=== PATIENT | female | born 1990 | race Caucasian/White ===

== ENCOUNTER 2021-04-10 04:58 | Inpatient (IN) | payer OTHER, SELFPAY ==
[2021-04-10] VITALS (97 sets, daily range): BP systolic 94–142; BP diastolic 40–92; PULSE 68–151; RESP 16; TEMP 36.6–36.9; O2SAT 98–100; BMI 31.1
--- NOTE | 2021-04-10 04:58 | LDADM ---
This patient, Sandrita Castellanos, was admitted to Labor/Delivery/Recovery 108 on 04/10/21 at 04:58. Plans for labor, pain management and were discussed with patient. Patient/family oriented to hospital policies and general routines including ID bracelet, bed and alarms, visiting hours, pain management, procedures, bathroom and other care routines, personal items, smoking policy, room service/diet and guest tray routines, infant security routines, and visiting hours. Patient/Family are encouraged to report perceived risks to care and to ask questions if they do not understand what they are told or what they should do. See OBIX for further documentation.
[2021-04-10 05:28] LABS: Basophils Absolute Auto 0.1 K/mm3 (0.0-0.1); Basophils Percent Auto 0.6 % (0.2-1.2); Eosinophils Absolute Auto 0.2 K/mm3 (0-0.3); Eosinophils Percent Auto 2.5 % (0-4.4); Hematocrit 32.7 % (37.0-47.0); Hemoglobin 11.1 g/dL (12.0-15.0); Immature Granulocyte Absolute 0.04 K/mm3 (0.00-0.031); Immature Granulocyte Percent A 0.4 % (0-0.5); Lymphocytes Percent Auto 15.6 % (18.3-44.2); Mean Corpuscular HGB Conc 33.9 g/dl (32-36); Mean Corpuscular Hemoglobin 31.3 pg (26-34); Mean Corpuscular Volume 92.1 fl (80-100); Mean Platelet Volume 10.6 fl (7.4-10.4); Monocytes Absolute Auto 0.6 K/mm3 (0.1-0.6); Monocytes Percent Auto 5.7 % (2.6-8.5); Neutrophils Absolute Auto 7.2 K/mm3 (1.3-6.7); Neutrophils Percent Auto 75.2 % (45.5-73.1); Platelet Count Result 189 k/mm3 (150-375); Red Blood Count 3.55 M/mm3 (4.2-5.4); Red Cell Distribution Width 13.2 % (11.5-14.5); White Blood Count 9.6 K/mm3 (4.5-10.0)
[2021-04-10] MEDS: OXYTOCIN 30 UNITS/NS 500 ML 30 UNITS/500 ML BAG IV CONT (05:32)
[2021-04-10] MEDS: LACTATED RINGERS 1,000 ML 125 ML IV CONT ×2 (05:32→11:06)
--- NOTE | 2021-04-10 07:15 | PM.IMHP ---
H&P: HPI History of Present Illness Date/Time: 04/10/21 07:15 31-year-old 2 para 1 with unknown last menstrual period, EDC of 04/16/2021 confirmed by 9 week ultrasound presents at 3917 weeks gestation for induction of labor. She negative for group B strep in her has been uncomplicated. Her cervix is favorable Chief Complaint: induction of labor at term Review of Systems Review of Systems: All systems reviewed & are unremarkable except as noted in HPI and below PMFSH Family History Family History Father Lung cancer Grandparent Diabetes mellitus Social History Social History Smoking status: Never smoker Alcohol intake: current Substance use: never Spiritual care concerns: No Meds Home Medications and Allergies Home Medications Medication Instructions Recorded Confirmed Type prenat.vits,leatha,eix-smgi-tntca 1 tablet PO DAILY 03/16/21 03/16/21 History [ #2] Allergies Allergy/AdvReac Type Severity Reaction Status Date / Time No Known Allergies Allergy Verified 03/16/21 12:35 Vital Signs Vital Signs - 24 hr 04/10/21 05:27 04/10/21 06:29 04/10/21 06:45 Pulse Rate 93 90 84 Blood Pressure 123/67 120/67 109/73 04/10/21 07:00 Pulse Rate 78 Blood Pressure 108/68 Exam Const: General: no acute distress Eyes: General: appearance normal, both eyes and all related structures Neck: Neck: supple and no JVD Thyroid: thyroid normal Resp: Effort & Inspection: normal respiratory effort Auscultation: clear to auscultation bilaterally Cardio: Rate: regular rate Rhythm: regular rhythm GI: Inspection: non-distended GI Palp: Yes Soft to palpation, No Tenderness to palpation present (GI) and No Guarding due to palpation present (GI) Auscultation: normal bowel sounds : External Female Exam: normal external appearance Speculum Exam - Vagina: normal appearance of the vagina Speculum Exam - Cervix: Cervical os closed ( cervix 3/60/1. AROM clear. FHTs reassuring) Skin: General skin exam: no rashes or lesions noted Extrem: General: normal to inspection and no edema Psych: Mental Status: mental status grossly normal Affect: normal affect H&P: Results Labs Labs: Short CBC 04/10/21 Range/Units 05:20 WBC 9.6 (4.5-10.0) K/mm3 Hgb 11.1 L (12.0-15.0) g/dL Hct 32.7 L (37.0-47.0) % Plt Count 189 (150-375) k/mm3 Assessment and Plan Additional Plan impression: Term with favorable cervix Plan: Medical induction of labor. Spontaneous vaginal delivery expected. She has an epidural candidate
[2021-04-10 09:47] LABS: Rapid Plasma Reagin Non-Reactive (NonReactive)
--- NOTE | 2021-04-10 10:58 | WPDANESEPP ---
Anes - Eval Pre Procedure Procedure: labor epidural Date/Time: 04/10/21 10:58 Preop Diagnosis: labor pain Pre Op Diagnosis: IOL Patient Data Age: 31 Gender: F Height: 1.7 m Weight: 90 kg Last Vital Signs Temp 36.6 C 04/10/21 08:00 Pulse 68 04/10/21 10:45 BP 124/71 04/10/21 10:45 Allergies Allergy/AdvReac Type Severity Reaction Status Date / Time No Known Allergies Allergy Verified 03/16/21 12:35 Home Medications Medication Instructions Recorded Confirmed Type prenat.vits,leatha,ovz-ssbn-vtgla 1 tablet PO DAILY 03/16/21 03/16/21 History [ #2] Laboratory Tests 04/10/21 04/10/21 04/10/21 05:20 05:20 05:20 WBC 9.6 K/mm3 K/mm3 (4.5-10.0) RBC 3.55 M/mm3 L M/mm3 (4.2-5.4) Hgb 11.1 g/dL L g/dL (12.0-15.0) Hct 32.7 % L % (37.0-47.0) MCV 92.1 fl fl (80-100) MCH 31.3 pg pg (26-34) MCHC 33.9 g/dl g/dl (32-36) RDW 13.2 % % (11.5-14.5) Plt Count 189 k/mm3 k/mm3 (150-375) MPV 10.6 fl H fl (7.4-10.4) Immature Gran % (Auto) 0.4 % % (0-0.5) Neut % (Auto) 75.2 % H % (45.5-73.1) Lymph % (Auto) 15.6 % L % (18.3-44.2) [place] % (Auto) 5.7 % % (2.6-8.5) Eos % (Auto) 2.5 % % (0-4.4) Baso % (Auto) 0.6 % % (0.2-1.2) Lymph # (Auto) 1.50 K/mm3 K/mm3 (0.9-3.2) [place] # (Auto) 0.6 K/mm3 K/mm3 (0.1-0.6) Eos # (Auto) 0.2 K/mm3 K/mm3 (0-0.3) Baso # (Auto) 0.1 K/mm3 K/mm3 (0.0-0.1) Abs Immat Gran (auto) 0.04 K/mm3 H K/mm3 (0.00-0.031) Absolute Neuts (auto) 7.2 K/mm3 H K/mm3 (1.3-6.7) Absolute Nucleated RBC 0.0 K/mm3 K/mm3 (0.0-0.012) Nucleated RBC % 0.0 % % (0.0-0.2) RPR Non-reactive (NonReactive) Blood Type B Positive Antibody Screen Negative Patient hx anesthesia problems: none Family hx anesthesia problems: none PMFSH Family History Family History Father Lung cancer Grandparent Diabetes mellitus Social History Social History Smoking status: Never smoker Alcohol intake: current Substance use: never Spiritual care concerns: No Exam Day of Procedure 04/10/21 10:58
--- NOTE | 2021-04-10 11:39 | PM.OBPNLAB ---
Pain Control Date/time seen: 04/10/21 11:39 Pain control: tolerating well and epidural Pelvic Exam Dilation (cm): 5 station: -1 Amniotic membrane status: Ruptured Contractions Monitor mode: None Contraction pattern: Regular
--- NOTE | 2021-04-10 15:38 | PM.OBPRVD ---
OB - Delivery Note Procedure Delivery date: 04/10/21 Intrapartal events: None Induction method: AROM Delivery augmentation: pitocin Delivery monitor: external FHT Route of delivery: Episiotomy description: None Laceration Description: None Specimen: No Quantitative Blood Loss (ml): 58 Anesthesia type: Epidural Disposition: floor Baby Date of : 04/10/21 Time of : 15:31 Weeks of gestation at delivery: 39 presentation: vertex position: Left Occiput Posterior Placenta delivery description: Spontaneous cord vessel description: 3 Vessels score one minute: 9 score five minutes: 9
[2021-04-10] MEDS: OXYTOCIN 30 UNITS/NS 500 ML 30 UNITS/500 ML BAG 125 UNITS IV CONT (15:43)
--- NOTE | 2021-04-10 18:32 | PC.NURSE ---
Patient transferred to post room #290 via wheelchair. Support person, Arnulfo, present. Oriented to unit, room, information board, rooming in, admission packet and security measures. Patient verbalizes understanding.
[2021-04-10] MEDS: DOCUSATE SODIUM 100 MG CAPSULE PO (19:17)
[2021-04-10] MEDS: IBUPROFEN 600 MG TABLET PO (19:18)
[2021-04-10] MEDS: LANOLIN (LANSINOH) 7.5 GM CREAM 1 APPLIC TOPICAL (19:19)
[2021-04-11 00:35] VITALS: BP 105/66; PULSE 72; RESP 16; TEMP 36.4; O2SAT 99
[2021-04-11] MEDS: IBUPROFEN 600 MG TABLET PO ×3 (01:15→15:26)
[2021-04-11] MEDS: ACETAMINOPHEN 325 MG TABLET 650 MG PO ×3 (04:05→19:05)
[2021-04-11 04:15] VITALS: BP 102/61; PULSE 86; RESP 16; TEMP 36.7; O2SAT 100
[2021-04-11 04:44] LABS: Hematocrit 34.2 % (37.0-47.0); Hemoglobin 11.2 g/dL (12.0-15.0)
--- NOTE | 2021-04-11 07:37 | PM.DS ---
DS: Admitting Diagnosis Discharge Date 04/11/21 Admitting Diagnosis term iup DS: Summary Hospital Course Hospital Course: Patient was admitted for induction of labor at term. She underwent spontaneous vaginal delivery which was unremarkable with epidural anesthesia. Her course for 24hours was unremarkable. She remained afebrile. She was up, ambulating, breast-feeding, and generally without complaints Time Spent with Patient Time attestation: Total time spent providing and/or coordinating discharge services: Exam Const: General: no acute distress Eyes: General: appearance normal, both eyes and all related structures Neck: Neck: supple and no JVD Thyroid: thyroid normal Resp: Effort & Inspection: normal respiratory effort Auscultation: clear to auscultation bilaterally Cardio: Rate: regular rate Rhythm: regular rhythm GI: Inspection: non-distended GI Palp: Yes Soft to palpation, No Tenderness to palpation present (GI) and No Guarding due to palpation present (GI) Auscultation: normal bowel sounds : General: Yes bladder normal to palpation External Female Exam: normal external appearance Speculum Exam - Vagina: normal vaginal discharge and No vaginal bleeding Speculum Exam - Cervix: nontender Bimanual exam- vagina & uterus: bladder normal to palpation and No Cervical tenderness present OB/external & speculum: No vaginal bleeding Skin: General skin exam: no rashes or lesions noted Extrem: General: normal to inspection and no edema Psych: Mental Status: mental status grossly normal Affect: normal affect DS: Data Data Completed and Pending Labs on day of discharge: Labs from last 24 hours 04/11/21 04/10/21 04:26 05:20 Hgb 11.2 L Hct 34.2 L RPR Non-reactive Discharge Plan Discharge Attending physician on discharge: Shai Barron Discharging Clinician: Shai Barron Patient Disposition: Home, Self-Care Activity: may shower, no straining and pelvic rest Diet: heart healthy Wound Care Instructions: follow printed instructions Patient Instructions: Antibiotic Form Stand Alone Forms: General Discharge Information Follow-up/Referrals: Shai Barron MD [Physician] - Discharge Medications: Continued #2 Tablet 1 tablet PO DAILY RF: 0 Date of admission: 04/10/21 04:58 Primary Care Provider: Negrito Spann Admitting Provider: Shai Barron Attending physician on admission: Shai Barron Condition: Stable
[2021-04-11] MEDS: DOCUSATE SODIUM 100 MG CAPSULE PO ×2 (08:49→15:25)
[2021-04-11] MEDS: MULTIVIT/MIN/PREN/FOL AC/IRON TABLET 1 TAB PO (08:49)
--- NOTE | 2021-04-11 08:55 | WPDANLDPN2 ---
Anes-Prog Note L&D Date/Time: 04/11/21 08:55 Comfortable throughout: labor and delivery Neuraxial method: epidural Epidural/Spinal procedure site: clean & non-tender Neuro status: Neuro function grossly intact. Cardiovascular status: normal Respiratory status: normal Airway patency: baseline Mental status: baseline Post-Op hydration status: normal Vital Signs: Last Vital Signs Temp 98.1 F 04/11/21 04:15 Pulse 86 04/11/21 04:15 Resp 16 04/11/21 04:15 BP 102/61 04/11/21 04:15 Pulse Ox 100 04/11/21 04:15 Pain score (VAS): 0 Post-procedural complaints: none Patient feedback: Patient satisfied with anesthetic care.
[2021-04-11 09:17] VITALS: BP 104/60; PULSE 76; RESP 18; TEMP 36.6; O2SAT 99
--- NOTE | 2021-04-11 10:00 | PC.NURSE ---
Mother verbalizes she is able to independently latch with appropriate positioning/alignment. She denies any nipple discomfort, is feeding as required and waking to feed if needed. Requested mother to call out for RN/LC assistance if she is unable to latch for feeding or she has discomfort with nursing. Instructed feeding should be initiated three hours from start of last feeding or if feeding cues are noted before. Mother voiced understanding of information shared.
[2021-04-11 12:54] VITALS: BP 115/68; PULSE 82; RESP 16; TEMP 36.7; O2SAT 97
[2021-04-11 20:00] VITALS: BP 90/60; PULSE 68; RESP 16; TEMP 36.8; O2SAT 98
[2021-04-12] VITALS: BP 93/55; PULSE 78
--- NOTE | 2021-04-12 06:29 | PM.DS ---
DS: Admitting Diagnosis Discharge Date 04/12/21 Admitting Diagnosis term iup DS: Summary Hospital Course Hospital Course: Patient was admitted for induction of labor. She underwent spontaneous vaginal delivery which was unremarkable. She remained afebrile. She was up, voiding without difficulty, ambulating, generally without complaints Time Spent with Patient Time attestation: Total time spent providing and/or coordinating discharge services: Exam Const: General: no acute distress Eyes: General: appearance normal, both eyes and all related structures Neck: Neck: supple and no JVD Thyroid: thyroid normal Resp: Effort & Inspection: normal respiratory effort Auscultation: clear to auscultation bilaterally Cardio: Rate: regular rate Rhythm: regular rhythm GI: Inspection: non-distended GI Palp: Yes Soft to palpation, No Tenderness to palpation present (GI) and No Guarding due to palpation present (GI) Auscultation: normal bowel sounds : General: Yes bladder normal to palpation External Female Exam: normal external appearance Speculum Exam - Vagina: normal vaginal discharge and No vaginal bleeding Speculum Exam - Cervix: nontender Bimanual exam- vagina & uterus: bladder normal to palpation and No Cervical tenderness present OB/external & speculum: No vaginal bleeding Skin: General skin exam: no rashes or lesions noted Extrem: General: normal to inspection and no edema Psych: Mental Status: mental status grossly normal Affect: normal affect Discharge Plan Discharge Attending physician on discharge: Shai Barron Discharging Clinician: Shai Barron Patient Disposition: Home, Self-Care Activity: may shower, no straining and pelvic rest Diet: heart healthy Wound Care Instructions: follow printed instructions Discharge Instructions: Education: Mom and Baby Guide Given to: Mother Follow-Up: Call your delivering provider's office for an appointment to be seen in: 6 Weeks Mom and baby should come to the [facility] for the follow-up appointment. Appointment Date/Time:Wednesday, April 14, 2021 at 9:00 am Call [phone] if you are unable to keep your appointment time. BREAST CARE: * Wear a snug supportive bra. * For engorgement discomfort: Breast Feeding: * Apply warm moist washcloths * Express milk as needed to relieve engorgement * Wear loose clothing * For sore nipples: * Identify correct latch-on * Apply warm moist washcloths before and after nursing * Air dry nipples after nursing * May apply Lansinoh cream to nipples EPISIOTOMY/PERINEAL CARE: * Until bleeding stops, use your clarissa bottle after urinating * Change your pad frequently throughout the day * You may take sitz baths several times a day (fill your bathtub with warm water and soak for 20 minutes.) Do NOT bathe in the water * No tub baths until seen by your physician - You may shower ACTIVITY: * Rest as much as possible. * Do not exercise or lift anything heavier than your baby (such as laundry or other children.) * Avoid stairs or driving as much as possible. * Do not put anything into the vagina. No douching, tampons, or sexual activity until seen by physician. NOTIFY PHYSICIAN IF YOU HAVE ANY QUESTIONS OR IF ANY OF THE FOLLOWING SYMPTOMS OCCUR: * If your episiotomy or incision becomes red, swollen, or more painful than what you have experienced in the hospital. * If your vaginal bleeding becomes foul smelling. * If your vaginal bleeding becomes more heavy than a period or if your bleeding changes from pink to bright red. However, you may pass an occasional walnut-sized clot once or twice for the first week . * If you experience a sharp, shooting pain in you calves. * If you discover a hard, reddened area on your breast or if you experience flu-like symptoms. DIET: * Eat reg
--- NOTE | 2021-04-12 06:34 | PM.OBPNVD ---
OB - PN: Subj Subjective Date/time seen: 04/12/21 06:34 Patient comments: no complaints and pain well controlled baby status: doing well and nursing well OB - PN: Obj Data Labs CBC & Chem 7: 04/11/21 04:26 OB - PN A/P Plan day: 2 Plan: routine care, discharge home and follow up 6 weeks Time Spent With Patient Time: Total time spent is greater than 50% in coordination of care (as documented) at patient's floor/unit and/or counseling patient: Time with patient: less than 15 minutes Review of Systems Review of Systems: All systems reviewed & are unremarkable except as noted in HPI and below Exam Const: General: no acute distress Eyes: General: appearance normal, both eyes and all related structures Neck: Neck: supple and no JVD Thyroid: thyroid normal Resp: Effort & Inspection: normal respiratory effort Auscultation: clear to auscultation bilaterally Cardio: Rate: regular rate Rhythm: regular rhythm GI: Inspection: non-distended GI Palp: Yes Soft to palpation, No Tenderness to palpation present (GI) and No Guarding due to palpation present (GI) Auscultation: normal bowel sounds : General: Yes bladder normal to palpation External Female Exam: normal external appearance Speculum Exam - Vagina: normal vaginal discharge and No vaginal bleeding Speculum Exam - Cervix: nontender Bimanual exam- vagina & uterus: bladder normal to palpation and No Cervical tenderness present OB/external & speculum: No vaginal bleeding Skin: General skin exam: no rashes or lesions noted Extrem: General: normal to inspection and no edema Psych: Mental Status: mental status grossly normal Affect: normal affect
[2021-04-12 07:30] VITALS: PULSE 79; RESP 16; O2SAT 97
--- NOTE | 2021-04-12 07:32 | PC.NURSE ---
Patient viewed the discharge video Mother & Baby Care, The First Two Weeks . Patient was given the opportunity and encouraged to ask questions. Patient verbalized understanding of information shared and has been given the mother/baby guide for home reference.
[2021-04-12 08:15] VITALS: BP 98/61; PULSE 79; RESP 16; TEMP 36.8; O2SAT 97
--- NOTE | 2021-04-12 08:30 | PC.NURSE ---
Observed mother is able to independently latch with appropriate positioning/alignment. She denies any nipple discomfort, is feeding as required and waking infant to feed if needed. is able to maintain latch with effective nursing with occasional swallowing noted. Infant has had at least 8 effective feedings in the past 24 hours, and is currently meeting outcomes for weight, output, jaundice and feeding frequencies. Mother states she feels confident to continue effective at home. Reviewed transition to breast milk, signs of adequate intake, and engorgement/relief. Instructed to call ICP if intake/output less than required. Reviewed regular medications mother is taking. Information provided per Kimber. Reviewed community resources on the [facility] website and in the Mom/Baby guide. Information on outpatient services provided. Mother has no further questions at this time.
[2021-04-12] MEDS: IBUPROFEN 600 MG TABLET PO (10:15)
[2021-04-12] MEDS: MULTIVIT/MIN/PREN/FOL AC/IRON TABLET 1 TAB PO (10:15)
[2021-04-14 10:10] VITALS: BP 122/75; PULSE 75; RESP 20; TEMP 36.9; O2SAT 100
== END 2021-04-12 11:50 | disposition home or self-care (01) | DRG 807 ==
LOC: ANHLDR 05:01 → ANHOB2 18:35
PROVIDERS: Admitting Provider Obstetrics & Gynecology; PCP Family Medicine Adolescent Medicine; Visit Provider Obstetrics & Gynecology
DX: O80 Encounter for full-term uncomplicated delivery (principal); Z37.0 Single live birth; Z3A.39 39 weeks gestation of pregnancy
CPT/HCPCS: 36415; 85014; 85018; 85025; 86592; 86850; 86900; 86901; A9270; J2590; J2795; J7120

== ENCOUNTER 2021-11-25 18:21 | Emergency (ER) | payer OTHER, SELFPAY ==
--- NOTE | ~2021-11-25 | XR_ITS ---
EXAMINATION: XR chest 2V Exam Date/Time: 11/25/2021 18:40 CDT CLINICAL HISTORY: chest tightness/ NUMBNESS TO BOTH ARMS X 1 DAY Comparison: 03/22/2007. RESULT: Lines, tubes, and devices: None. Lungs and pleura: Clear. Cardiomediastinal silhouette: Stable cardiomediastinal silhouette. Other: No acute osseous or upper abdominal finding. IMPRESSION: No acute cardiopulmonary process Reviewed, dictated and finalized at location K.
[2021-11-25 18:24] VITALS: BP 159/86; PULSE 110; RESP 16; TEMP 37.3; O2SAT 100
--- NOTE | 2021-11-25 18:29 | ECG_ITS ---
Measurements Intervals [place] Rate: 80 P: -13 NH: 129 QRS: 67 QRSD: 98 T: 35 QT: 363 QTc: 420 Interpretive Statements SINUS RHYTHM WITH SINUS ARRHYTHMIA ATRIAL PREMATURE COMPLEX BASELINE ARTIFACT- I, II, III, AVR, AVL, AVF, V1, V3 BORDERLINE ECG Electronically Signed On 11-25-2021 19:57:39 CDT by Adonis Kwan D.O.
[2021-11-25 18:44] LABS: Basophils Absolute Auto 0.1 K/mm3 (0.0-0.1); Basophils Percent Auto 0.7 % (0.2-1.2); Eosinophils Absolute Auto 0.1 K/mm3 (0-0.3); Eosinophils Percent Auto 0.7 % (0-4.4); Hematocrit 40.1 % (37.0-47.0); Hemoglobin 13.1 g/dL (12.0-15.0); Immature Granulocyte Absolute 0.04 K/mm3 (0.00-0.031); Immature Granulocyte Percent A 0.3 % (0-0.5); Lymphocytes Absolute Auto 1.47 K/mm3 (0.9-3.2); Lymphocytes Percent Auto 12.2 % (18.3-44.2); Mean Corpuscular HGB Conc 32.7 g/dl (32-36); Mean Corpuscular Hemoglobin 30.8 pg (26-34); Mean Corpuscular Volume 94.4 fl (80-100); Mean Platelet Volume 9.4 fl (7.4-10.4); Monocytes Absolute Auto 0.7 K/mm3 (0.1-0.6); Monocytes Percent Auto 6.1 % (2.6-8.5); Neutrophils Absolute Auto 9.6 K/mm3 (1.3-6.7); Platelet Count Result 286 k/mm3 (150-375); Red Blood Count 4.25 M/mm3 (4.2-5.4); Red Cell Distribution Width 13.3 % (11.5-14.5)
[2021-11-25 19:00] LABS: Partial Thromboplastin Time 23.6 SECONDS (22.3-36.8)
[2021-11-25 19:01] LABS: Alanine Aminotransferase 17 U/L (4-35); Albumin Level 4.9 g/dL (3.5-5.1); Alkaline Phosphatase 68 U/L (38-126); Anion Gap 11 mmol/L (8-16); Aspartate Amino Transferase 30 U/L (14-36); Bilirubin,Total 0.4 mg/dL (0.2-1.3); Blood Urea Nitrogen 13 mg/dL (7-17); Calcium 9.4 mg/dL (8.4-10.2); Carbon Dioxide 22 mmol/L (22-30); Chloride 108 mmol/L (98-107); Estimated CRCL calculation 98 ml/min; Estimated Glomerular Filt Rate > 60; Glucose 107 mg/dL (65-110); Lipase 48 U/L (23-300); Potassium 3.7 mmol/L (3.4-5.0); Sodium 141 mmol/L (137-145)
[2021-11-25 19:09] LABS: INR 1.1; Prothrombin Time 13.6 Seconds (11.1-14.7)
[2021-11-25 19:13] LABS: Troponin I < 0.012 ng/mL (0.000-0.034)
[2021-11-25 21:34] VITALS: BP 143/87; PULSE 86; RESP 16; O2SAT 100
--- NOTE | 2021-11-25 21:50 | ED.GENADULT ---
HPI - General Adult General Chief complaint: Chest Pain Stated complaint: anxiety Time Seen by Provider: 11/25/21 21:21 History of Present Illness HPI narrative: Patient is a 31-year-old female here for evaluation of an episode of pbka-zlo-rlkzvtm sensation in her bilateral upper extremities earlier today. Patient states she was driving when she noted this sensation, and was accompanied with lots of anxiety and sensation like I felt like I was dying . She also notes about 1 to 2 seconds of midsternal chest discomfort described as a tightness. Patient pulled over the car because she was driving when this sensation occurred, and it resolved without intervention approximately 2 minutes after it came on. She denies liane numbness in her hands and denies any changes to motor control. She does note several occasions of this sensation over the past 2 years without an obvious precipitating factor. She was seen in the emergency department once, and followed up with her primary care doctor for this issue, and has worn a Holter monitor without suspicious events seen. Denies unilateral numbness, speech changes, visual changes, headaches, shortness of breath, fevers, chills, nausea, vomiting, abdominal pain. Related Data Home Medications Medication Instructions Recorded Confirmed prenat.vits,leatha,usy-upag-mgmpe 1 tablet PO DAILY 03/16/21 03/16/21 Allergies Allergy/AdvReac Type Severity Reaction Status Date / Time No Known Allergies Allergy Verified 03/16/21 12:35 Review of Systems Review of Systems: Gen: Denies fevers or chills Eyes: Denies eye pain or visual change ENT: Denies congestion Respiratory: Denies shortness of breath or cough CV: Reports chest pain. Denies palpitations GI: Denies abdominal pain nausea, emesis or diarrhea denies burning, urgency, frequency or hematuria Musculoskeletal: Denies back pain or muscle pain Neuro: Positive for paresthesias as per HPI. Skin: Denies rash Except as documented, all other systems reviewed and negative All systems reviewed & are unremarkable except as noted in HPI and below PMFSH Family History Family History Father Lung cancer Grandparent Diabetes mellitus Social History Social History Smoking status: Never smoker Alcohol intake: current Substance use: never Spiritual care concerns: No Exam Narrative: APPEARANCE: Well appearing, no pain in distress, well-nourished. Head: normocephalic and atraumatic. EYES: PERRLA/EOMI, conjunctivae clear NOSE: No nasal drainage EARS: External ear normal in appearance THROAT: Oropharynx is clear. Mucous membranes are moist. NECK: Supple. No adenopathy, no masses. RESPIRATORY: Airway patent, respirations nonlabored. Clear to auscultation bilaterally, no rales, rhonchi, wheezing. CARDIOVASCULAR: Regular rate and rhythm without murmurs, rubs, or gallops. ABDOMINAL: Normoactive bowel sounds. Soft, nontender, nondistended. No rebound tenderness or guarding. MUSCULOSKELETAL: Spurling's test negative. No midline tenderness along entirety of spine. Extremities are warm and well-perfused. Moves all extremities well. No edema. NEURO: Strong and equal mortgage loan officer strength bilaterally. Normal speech. No focal neurologic deficits. Finger-nose normal, kjbq-hx-fbil normal. Cranial nerves II through XII intact. SKIN: Skin is warm and dry. No rashes. PSYCHIATRIC: Normal affect/mood. Course Vital Signs Vital signs: Vital Signs Temperature 99.1 F 11/25/21 18:24 Pulse Rate 110 H 11/25/21 18:24 Respiratory Rate 16 11/25/21 18:24 Blood Pressure 159/86 H 11/25/21 18:24 Pulse Oximetry 100 11/25/21 18:24 Temperature 99.1 F 11/25/21 18:24 Pulse Rate 70 11/25/21 23:01 Respiratory Rate 14 11/25/21 23:01 Blood Pressure 125/71 11/25/21 23:01 Pulse Oximetry 100 11/25/21 23:01 Medical Decis
[2021-11-25 22:32] LABS: Troponin I < 0.012 ng/mL (0.000-0.034)
[2021-11-25 23:01] VITALS: BP 125/71; PULSE 70; RESP 14; O2SAT 100
== END 2021-11-25 23:25 | disposition home or self-care (01) ==
PROVIDERS: Emergency Medicine; Emergency Provider Emergency Medicine; PCP Family Medicine Adolescent Medicine
DX: R20.2 Paresthesia of skin (principal)
CPT/HCPCS: 36415; 71046; 80053; 83690; 84484; 85025; 85610; 85730; 93005; 99284

== ENCOUNTER 2022-01-10 09:20 | Outpatient (CLI) | payer OTHER, SELFPAY ==
--- NOTE | 2022-01-10 12:00 | NEURO_ITS ---
Impression: # Complains of left 4th and 5th finger numbness. # No Carpal Tunnel Syndrome or ulnar neuropathy. # Needle/EMG exam not requested. # Clinical correlation recommended. Nerve Conduction Studies Anti Sensory Summary Table Stim Site NR Peak (ms) P-T Amp (?V) Site1 Site2 Delta-P (ms) Dist (cm) Del (m/s) Left Median Anti Sensory (2-3nd Digit) Wrist 2.6 95.2 Wrist 2-3nd Digit 2.6 14.0 54 Wrist 2.7 98.4 Wrist 2-3nd Digit 2.6 14.0 54 Right Median Anti Sensory (2-3nd Digit) Wrist 2.7 83.0 Wrist 2-3nd Digit 2.7 14.0 52 Wrist 2.5 84.9 Wrist 2-3nd Digit 2.7 14.0 52 Left Radial Anti Sensory (Base 1st Digit) Wrist 1.8 26.7 Wrist Base 1st Digit 1.8 0.0 Right Radial Anti Sensory (Base 1st Digit) Wrist 2.0 36.7 Wrist Base 1st Digit 2.0 0.0 Left Ulnar Anti Sensory (5th Digit) Wrist 2.5 71.5 Wrist 5th Digit 2.5 14.0 56 Right Ulnar Anti Sensory (5th Digit) Wrist 2.3 68.3 Wrist 5th Digit 2.3 14.0 61 Motor Summary Table Stim Site NR Onset (ms) O-P Amp (mV) Site1 Site2 Delta-0 (ms) Dist (cm) Del (m/s) Left Median Motor (Abd Poll Brev) Wrist 3.0 4.5 Elbow Wrist 4.4 26.0 59 Elbow 7.4 2.9 Right Median Motor (Abd Poll Brev) Wrist 2.7 9.1 Elbow Wrist 4.3 26.0 60 Elbow 7.0 7.2 Left Ulnar Motor (Abd Dig Minimi) Wrist 2.4 6.2 A Elbow Wrist 4.9 30.0 61 A Elbow 7.3 5.5 Right Ulnar Motor (Abd Dig Minimi) Wrist 2.2 7.2 A Elbow Wrist 4.8 29.0 60 A Elbow 7.0 7.5 F Wave Studies NR F-Lat (ms) L-R F-Lat (ms) Left Median (Mrkrs) (Abd Poll Brev) 25.50 0.29 Right Median (Mrkrs) (Abd Poll Brev) 25.79 0.29 Left Ulnar (Mrkrs) (Abd Dig Min) 26.49 0.00 Right Ulnar (Mrkrs) (Abd Dig Min) 26.49 0.00 MTDD
== END 2022-01-10 09:21 | disposition home or self-care (01) ==
PROVIDERS: PCP Family Medicine Adolescent Medicine; Visit Provider Family Medicine Adolescent Medicine
DX: R20.2 Paresthesia of skin (principal)
CPT/HCPCS: 95911